=== PATIENT | male | born 1975 | race Caucasian/White ===

== ENCOUNTER 2017-09-08 10:02 | Inpatient (IN) | payer OTHER ==
[2017-09-08 10:20] VITALS: BMI 30.4
--- NOTE | 2017-09-08 10:53 | HP ---
CIWA Score - CIWA Score Nausea/Vomitin-Int. Nausea w/Dry Heave Muscle Tremors: 4-Moderate,w/Arms Extend Anxiety: 4-Mod. Anxious/Guarded Agitation: 1-Slight > Activity Paroxysmal Sweats: 1-Minimal Palms Moist Orientation: 1-Uncertain about Date Tacttile Disturbances: 1-Very Mild Itch/Numbness Auditory Disturbances: 2-Mild Harshness/Frighten Visual Disturbances: 2-Mild Sensitivity Headache: 2-Mild CIWA-Ar Total Score: 22 [facility] - HPI Chief Complaint: I've started to shake too bad in the morning to shave - I've vomited in the morning - I know I need help - I can't stop drinking Allergies/Adverse Reactions: Allergies Allergy/AdvReac Type Severity Reaction Status Date / Time No Known Allergies Allergy Verified 09/08/17 10:45 History of Present Illness: 41 yo gentleman here for detox from alcohol. First time in detox. No seizures , sometimes 'forgets' what happened but no actual 'black out'. States he has started in the last few weeks getting very shakey and nauseous in the mornings and needs to drink alcohol to quell those feelings and he knows he needs help and his family agrees. Exam Limitations: Clinical Condition - Ebola screening Have you traveled outside of the country in the last 21 days: No (N) Have you had contact with anyone from an Ebola affected area: No Have you been sick,other than usual withdrawal symptoms: No Do you have a fever: No - Review of Systems Constitutional: Loss of Appetite, Malaise, Night Sweats, Changes in sleep, Weakness EENT: reports: No Symptoms Reported Respiratory: reports: No Symptoms reported Cardiac: reports: No Symptoms Reported GI: reports: Nausea, Poor Appetite, Poor Fluid Intake, Indigestion : reports: Frequency Musculoskeletal: reports: No Symptoms Reported Integumentary: reports: Dryness Neuro: reports: Headache, Tremors, Weakness Endocrine: reports: No Symptoms Reported Hematology: reports: No Symptoms Reported Psychiatric: reports: Judgement Intact, Mood/Affect Appropiate, Anxious Other Systems: Reviewed and Negative Patient History - Patient Medical History Hx Anemia: No Hx Asthma: No Hx Chronic Obstructive Pulmonary Disease (COPD): No Hx Cancer: No Hx Cardiac Disorders: No Hx Congestive Heart Failure: No Hx Hypertension: Yes (on meds) Hx Hypercholesterolemia: Yes (not currently on meds) Hx Pacemaker: No HX Cerebrovascular Accident: No Hx Seizures: No Hx Diabetes: No Hx Gastrointestinal Disorders: No Hx Liver Disease: No Hx Genitourinary Disorders: No Hx Sexually Transmitted Disorders: No Hx Renal Disease (ESRD): No Hx Thyroid Disease: No Hx Human Immunodeficiency Virus (HIV): No Hx Hepatitis C: No Hx Depression: No Hx Suicide Attempt: No Hx Bipolar Disorder: No Hx Schizophrenia: No - Patient Surgical History Past Surgical History: No - PPD History Previous Implant?: No Implanted On Prior [facility] Admission?: No PPD to be Administered?: Yes - Reproductive History Patient is a Female of Child Bearing Age (11 -55 yrs old): No (male) - Smoking Cessation Smoking history: Former smoker Have you smoked in the past 12 months: No Initiated information on smoking cessation: No - Substance & Tx. History Hx Alcohol Use: Yes Hx Substance Use: No Substance Use Type: Alcohol Hx Substance Use Treatment: No - Substances Abused alcohol Route: Oral Frequency: Daily Amount used: 2 pints vodka Age of first use: 16 Date of Last Use: 09/08/17 Family Disease History - Family Disease History Family Disease History: Other: Father (living, healthy), Mother (living, healthy , ), Sister (one - healthy), Son (one - healthy), Daughter (two - healthy) Admission Physical Exam S - Vital Signs Vital Signs: Vital Signs - 24 hr 09/08/17 10:18 Temperature 97.9 F Pulse Rate 90 Respiratory 18 Rate Blood Pressure 161/89 - Physical General Appearance: Yes: Nourished, Appropriately Dressed, Moderate Distress, Anxious HEENTM: Yes: EOMI, Hearing grossly Normal, Normocephalic, Normal Voice, Pharynx Normal Respiratory: Yes: Normal Breath Sounds, No Respiratory Distress Neck: Yes: No masses,lesions,Nodules, Supple Breast: Yes: Breast Exam Deferred Cardiology: Yes: Regular Rhythm, Regular Rate Abdominal: Yes: Flat, Soft Genitourinary: Yes: Frequency Back: Yes: Normal Inspection Musculoskeletal: Yes: full range of Motion, Gait Steady Extremities: Yes: Normal Inspection, Normal Range of Motion, Non-Tender Neurological: Yes: Fully Oriented, Alert, Motor Strength 5/5, Normal Mood/Affect , Normal Response Integumentary: Yes: Normal Color, Dry, Warm Lymphatic: Yes: Within Normal Limits - Diagnostic (1) Alcohol dependence with uncomplicated withdrawal Current Visit: Yes Status: Chronic (2) HTN (hypertension) Current Visit: Yes Status: Chronic Qualifiers: Hypertension type: essential hypertension Qualified Code(s): I10 - Essential (primary) hypertension (3) Dehydration Current Visit: Yes Status: Chronic (4) Insomnia Current Visit: Yes Status: Acute Qualifiers: Insomnia type: alcohol-induced Qualified Code(s): F10.982 - Alcohol use, unspecified with alcohol-induced sleep disorder Cleared for Admission [facility] - Detox or Rehab [facility] Level of Care: Medically Managed Detox Regimen/Protocol: Librium [facility] Breath Alcohol Content Breath Alcohol Content: 0.264 Urine Drug Screen - Results Drug Screen Negative: Yes
[2017-09-08] MEDS ORDERED: IBUPROFEN 400 MG TABLET (FP) PO PRN (11:00)
[2017-09-08] MEDS ORDERED: P-EPHED 60MG/TRIPROLIDI 2.5MG TABLET PO PRN (11:00)
[2017-09-08] MEDS ORDERED: hydrOXYzine PAMOATE 50 MG CAPSULE (FP) PO PRN (11:00)
[2017-09-08] MEDS ORDERED: MENTHOL/PHENOL 1 EACH UD MM PRN (11:00)
[2017-09-08] MEDS ORDERED: MAGNESIUM CITRATE 300 ML BOTTLE PO PRN (11:00)
[2017-09-08] MEDS ORDERED: guaiFENesin/D-METHORPHAN HB 10 ML UNIT-DOSE CUPS PO PRN (11:00)
[2017-09-08] MEDS ORDERED: LOPERAMIDE HCL 2 MG CAPSULE PO PRN (11:00)
[2017-09-08] MEDS ORDERED: ACETAMINOPHEN 325 MG TABLET (FP) PO PRN (11:00)
[2017-09-08] MEDS ORDERED: MAGNESIUM HYDROX 2400MG/30ML ORAL SUSPENSION 30 ML CUP PO PRN (11:00)
[2017-09-08] MEDS ORDERED: chlordiazePOXIDE HCL 25 MG CAPSULE PO ONE (13:00)
[2017-09-08 17:54] LABS: URINE APPEARANCE CLEAR; URINE BILIRUBIN NEGATIVE (<2.0 mg/dL); URINE BLOOD 1+ (NEGATIVE); URINE COLOR LTYELLOW; URINE GLUCOSE (UA) NEGATIVE (NEGATIVE); URINE KETONE TRACE (NEGATIVE); URINE LEUK ESTERASE NEGATIVE (NEGATIVE); URINE NITRITE NEGATIVE (NEGATIVE); URINE UROBILINOGEN NEGATIVE mg/dL (0.2-1.0)
[2017-09-08 17:58] LABS: URINE PROTEIN 1+ (NEGATIVE)
[2017-09-08 17:59] LABS: URINE MUCUS RARE
[2017-09-08] MEDS: chlordiazePOXIDE HCL 25 MG CAPSULE PO SCH ×3 (18:20→22:12)
[2017-09-08] MEDS: THIAMINE HCL 100 MG TABLET (FP) PO SCH (22:12)
[2017-09-08] MEDS: MELATONIN 5 MG TABLETS PO PRN (22:12)
[2017-09-08] MEDS: chlordiazePOXIDE HCL 25 MG CAPSULE PO PRN (23:46)
[2017-09-09] MEDS: chlordiazePOXIDE HCL 25 MG CAPSULE PO PRN ×2 (03:57→12:33)
[2017-09-09] MEDS: chlordiazePOXIDE HCL 25 MG CAPSULE PO SCH ×4 (07:27→22:24)
--- NOTE | 2017-09-09 07:48 | CONSULT ---
[facility] Psychiatric Consult - Data Date of interview: 09/09/17 Admission source: [facility] Identifying data: Mr Whitley is a 41 years old male, father of 3 children, employed for a private [employer], domiciled living with and children seeking detox treatment for alcohol Substance Abuse History: Reports history of alcohol use. He started drinking alcohol at age 16, consumes 2 pints of vodka daily. Last drank on 09/08/17 Medical History: Significant for hypertension, dyslipidemia and GERD. Psychiatric History: Denies history of previous psychiatric treatment Physical/Sexual Abuse/Trauma History: Denies history of emotional, physical or seual abuse as well as DV relationship. No service Additional Comment: Denies criminal history Mental Status Exam - Mental Status Exam Alert and Oriented to: Time, Person Cognitive Function: Fair Patient Appearance: Well Groomed Mood: Anxious Affect: Appropriate Patient Behavior: Cooperative Speech Pattern: Clear Voice Loudness: Normal Thought Process: Intact, Goal Oriented Thought Disorder: Not Present Hallucinations: Denies Suicidal Ideation: Denies Homicidal Ideation: Denies Insight/Judgement: Poor Sleep: Poorly Appetite: Fair Muscle strength/Tone: Normal Gait/Station: Normal Psychiatric Findings - Problem List ([place] 1, 2,3) (1) Alcohol-induced anxiety disorder Current Visit: Yes Status: Acute (2) Alcohol-induced sleep disorder Current Visit: Yes Status: Acute (3) Alcohol dependence with uncomplicated withdrawal Current Visit: Yes Status: Acute (4) HTN (hypertension) Current Visit: Yes Status: Chronic Qualifiers: Hypertension type: essential hypertension Qualified Code(s): I10 - Essential (primary) hypertension (5) Hyperlipemia Current Visit: Yes Status: Chronic - Initial Treatment Plan Initial Treatment Plan: 1) Start Ambien 10 mg po HS prn for insomnia. 2) Continue inpatient detoxification
[2017-09-09] MEDS: LOSARTAN POTASSIUM 50 MG TABLET (FP) PO SCH (10:31)
[2017-09-09] MEDS: PRENATAL VITAMINS W/ FOLIC ACID TABLET (FP) PO SCH (10:31)
[2017-09-09] MEDS: HYDROCHLOROTHIAZIDE 25 MG TABLET (FP) PO SCH (10:31)
[2017-09-09 11:01] LABS: HEMATOCRIT 42.6 % (35.4-49); HEMOGLOBIN 14.7 GM/dL (11.7-16.9); MCH 30.6 pg (25.7-33.7); MCHC 34.6 g/dl (32.0-35.9); MEAN CELL VOLUME 88.5 fl (80-96); MEAN PLT VOLUME 6.8 fl (7.5-11.1); PLATELET COUNT 224 K/MM3 (134-434); RBC 4.82 M/mm3 (4.00-5.60); RDW 14.4 % (11.9-15.9); WHITE BLOOD COUNT 4.2 K/mm3 (4.0-10.0)
[2017-09-09 11:05] LABS: CHLORIDE 88 mmol/L (98-107); POTASSIUM 3.6 mmol/L (3.5-5.1); SODIUM 130 mmol/L (136-145)
--- NOTE | 2017-09-09 11:06 | PN ---
S CIWA - CIWA Score Nausea/Vomitin-Mild Nausea/No Vomiting (heart burn) Muscle Tremors: 4-Moderate,w/Arms Extend Anxiety: 4-Mod. Anxious/Guarded Agitation: 4-Moderately Restless Paroxysmal Sweats: 1-Minimal Palms Moist Orientation: 1-Uncertain about Date Tacttile Disturbances: 1-Very Mild Itch/Numbness Auditory Disturbances: 0-None Visual Disturbances: 0-None Headache: 1-Very Mild CIWA-Ar Total Score: 17 [facility] Progress Note (SOAP) Subjective: GI distress heart burn sweat tremor inaccurate date, anxiety irritable Objective: 09/09/17 11:05 Vital Signs Temperature 98.2 F 09/09/17 10:00 Pulse Rate 83 09/09/17 10:00 Respiratory Rate 20 09/09/17 10:00 Blood Pressure 149/93 09/09/17 10:00 O2 Sat by Pulse Oximetry (%) Laboratory Last Values Urine Color Ltyellow 09/08/17 Unknown Urine Appearance Clear 09/08/17 Unknown Urine pH 6.0 (5.0-8.0) 09/08/17 Unknown Ur Specific [place] 1.014 (1.001-1.035) 09/08/17 Unknown Urine Protein 1+ (NEGATIVE) H 09/08/17 Unknown Urine Glucose (UA) Negative (NEGATIVE) 09/08/17 Unknown Urine Ketones Trace (NEGATIVE) H 09/08/17 Unknown Urine Blood 1+ (NEGATIVE) H 09/08/17 Unknown Urine Nitrite Negative (NEGATIVE) 09/08/17 Unknown Urine Bilirubin Negative (<2.0 mg/dL) 09/08/17 Unknown Urine Urobilinogen Negative mg/dL (0.2-1.0) 09/08/17 Unknown Ur Leukocyte Esterase Negative (NEGATIVE) 09/08/17 Unknown Urine WBC (Auto) 1 /hpf (3-5) 09/08/17 Unknown Urine RBC (Auto) <1 /hpf (0-3) 09/08/17 Unknown Urine Mucus Rare 09/08/17 Unknown lab noted Assessment: 09/09/17 11:05 withdrawal sx 09/09/17 11:06 gerd Plan: continue detox zantac
[2017-09-09] MEDS: RANITIDINE HCL 150 MG TABLET (FP) PO SCH ×2 (12:15→22:24)
[2017-09-09 12:43] LABS: ALBUMIN 4.2 g/dl (3.4-5.0); ALK PHOS 123 U/L (45-117); ANION GAP 8 (8-16); BILIRUBIN,TOTAL 0.8 mg/dL (0.2-1.0); BLOOD UREA NITROGEN 11 mg/dL (7-18); CALCIUM 9.8 mg/dL (8.5-10.1); CO2 34 mmol/L (21-32); CREATININE 0.7 mg/dL (0.7-1.3); GLUCOSE,RANDOM 98 mg/dL (74-106); SGOT/AST 125 U/L (15-37); SGPT/ALT 171 U/L (12-78); TOT PROT 7.7 g/dl (6.4-8.2)
--- NOTE | 2017-09-09 16:23 | EKG ---
Test Reason : Blood Pressure : / mmHG Vent. Rate : 084 BPM Atrial Rate : 084 BPM P-R Int : 182 ms QRS Dur : 110 ms QT Int : 454 ms P-R-T Axes : 049 026 031 degrees QTc Int : 536 ms NORMAL SINUS RHYTHM LEFT ATRIAL ENLARGEMENT LEFT VENTRICULAR HYPERTROPHY ST ELEVATION, CONSIDER EARLY REPOLARIZATION, PERICARDITIS, OR INJURY PROLONGED QT ABNORMAL ECG NO PREVIOUS ECGS AVAILABLE Confirmed by MD LARA, RAMESH ([id number]) on 09/09/2017 4:23:39 PM Referred By: Confirmed By:RAMESH BERMUDEZ MD
[2017-09-09] MEDS: MELATONIN 5 MG TABLETS PO PRN (22:24)
[2017-09-09] MEDS: ZOLPIDEM TARTRATE 5 MG TABLET PO PRN (22:24)
[2017-09-09] MEDS: THIAMINE HCL 100 MG TABLET (FP) PO SCH (22:24)
[2017-09-10] MEDS: chlordiazePOXIDE HCL 25 MG CAPSULE PO SCH ×2 (05:16→10:33)
[2017-09-10] MEDS: PRENATAL VITAMINS W/ FOLIC ACID TABLET (FP) PO SCH (10:33)
[2017-09-10] MEDS: HYDROCHLOROTHIAZIDE 25 MG TABLET (FP) PO SCH (10:33)
[2017-09-10] MEDS: LOSARTAN POTASSIUM 50 MG TABLET (FP) PO SCH (10:33)
[2017-09-10] MEDS: RANITIDINE HCL 150 MG TABLET (FP) PO SCH ×2 (10:33→22:13)
--- NOTE | 2017-09-10 11:09 | PN ---
S CIWA - CIWA Score Nausea/Vomitin-No Nausea/No Vomiting Muscle Tremors: 4-Moderate,w/Arms Extend Anxiety: 4-Mod. Anxious/Guarded Agitation: 4-Moderately Restless Paroxysmal Sweats: 1-Minimal Palms Moist Orientation: 0-Oriented Tacttile Disturbances: 0-None Auditory Disturbances: 0-None Visual Disturbances: 0-None Headache: 0-None Present CIWA-Ar Total Score: 13 [facility] Progress Note (SOAP) Subjective: sweat tremor restlessness anxiety irritable Objective: 09/10/17 11:08 Vital Signs Temperature 98.2 F 09/10/17 09:09 Pulse Rate 95 H 09/10/17 09:09 Respiratory Rate 18 09/10/17 09:09 Blood Pressure 131/92 09/10/17 09:09 O2 Sat by Pulse Oximetry (%) Laboratory Last Values WBC 4.2 K/mm3 (4.0-10.0) 09/09/17 07:40 RBC 4.82 M/mm3 (4.00-5.60) 09/09/17 07:40 Hgb 14.7 GM/dL (11.7-16.9) 09/09/17 07:40 Hct 42.6 % (35.4-49) 09/09/17 07:40 MCV 88.5 fl (80-96) 09/09/17 07:40 MCH 30.6 pg (25.7-33.7) 09/09/17 07:40 MCHC 34.6 g/dl (32.0-35.9) 09/09/17 07:40 RDW 14.4 % (11.9-15.9) 09/09/17 07:40 Plt Count 224 K/MM3 (134-434) 09/09/17 07:40 MPV 6.8 fl (7.5-11.1) L 09/09/17 07:40 Sodium 130 mmol/L (136-145) L 09/09/17 07:40 Potassium 3.6 mmol/L (3.5-5.1) 09/09/17 07:40 Chloride 88 mmol/L (98-107) L 09/09/17 07:40 Carbon Dioxide 34 mmol/L (21-32) H 09/09/17 07:40 Anion Gap 8 (8-16) 09/09/17 07:40 BUN 11 mg/dL (7-18) 09/09/17 07:40 Creatinine 0.7 mg/dL (0.7-1.3) 09/09/17 07:40 Creat Clearance w eGFR > 60 (>60) 09/09/17 07:40 Random Glucose 98 mg/dL (74-106) 09/09/17 07:40 Calcium 9.8 mg/dL (8.5-10.1) 09/09/17 07:40 Total Bilirubin 0.8 mg/dL (0.2-1.0) 09/09/17 07:40 AST 125 U/L (15-37) H 09/09/17 07:40 ALT 171 U/L (12-78) H 09/09/17 07:40 Alkaline Phosphatase 123 U/L (45-117) H 09/09/17 07:40 Total Protein 7.7 g/dl (6.4-8.2) 09/09/17 07:40 Albumin 4.2 g/dl (3.4-5.0) 09/09/17 07:40 Urine Color Ltyellow 09/08/17 Unknown Urine Appearance Clear 09/08/17 Unknown Urine pH 6.0 (5.0-8.0) 09/08/17 Unknown Ur Specific [place] 1.014 (1.001-1.035) 09/08/17 Unknown Urine Protein 1+ (NEGATIVE) H 09/08/17 Unknown Urine Glucose (UA) Negative (NEGATIVE) 09/08/17 Unknown Urine Ketones Trace (NEGATIVE) H 09/08/17 Unknown Urine Blood 1+ (NEGATIVE) H 09/08/17 Unknown Urine Nitrite Negative (NEGATIVE) 09/08/17 Unknown Urine Bilirubin Negative (<2.0 mg/dL) 09/08/17 Unknown Urine Urobilinogen Negative mg/dL (0.2-1.0) 09/08/17 Unknown Ur Leukocyte Esterase Negative (NEGATIVE) 09/08/17 Unknown Urine WBC (Auto) 1 /hpf (3-5) 09/08/17 Unknown Urine RBC (Auto) <1 /hpf (0-3) 09/08/17 Unknown Urine Mucus Rare 09/08/17 Unknown RPR Titer Nonreactive (NONREACTIVE) 09/09/17 07:40 lab noted Assessment: 09/10/17 11:09 withdrawal sx Plan: continue detox
[2017-09-10] MEDS: chlordiazePOXIDE 5 MG CAPSULE PO SCH ×2 (17:19→22:13)
[2017-09-10] MEDS: THIAMINE HCL 100 MG TABLET (FP) PO SCH (22:13)
[2017-09-10] MEDS: ZOLPIDEM TARTRATE 5 MG TABLET PO PRN (22:13)
[2017-09-11] MEDS: chlordiazePOXIDE 5 MG CAPSULE PO SCH ×2 (05:54→10:20)
[2017-09-11] MEDS: LOSARTAN POTASSIUM 50 MG TABLET (FP) PO SCH (10:20)
[2017-09-11] MEDS: RANITIDINE HCL 150 MG TABLET (FP) PO SCH ×2 (10:20→22:17)
[2017-09-11] MEDS: PRENATAL VITAMINS W/ FOLIC ACID TABLET (FP) PO SCH (10:20)
[2017-09-11] MEDS: HYDROCHLOROTHIAZIDE 25 MG TABLET (FP) PO SCH (10:20)
--- NOTE | 2017-09-11 13:31 | PN ---
S Progress Note (SOAP) Subjective: ALERT,IRRITABLE,ANXIOUS,TREMOR,INTERRUPTED SLEEP Objective: 09/11/17 13:30 Vital Signs Temperature 97.9 F 09/11/17 10:00 Pulse Rate 84 09/11/17 10:00 Respiratory Rate 18 09/11/17 10:00 Blood Pressure 126/81 09/11/17 10:00 O2 Sat by Pulse Oximetry (%) Assessment: 09/11/17 13:31 WITHDRAWAL SYMPTOM Plan: CONTINUE DETOX,DISCHARGE IN AM
[2017-09-11] MEDS: chlordiazePOXIDE HCL 10 MG CAPSULE PO SCH ×2 (18:07→22:17)
[2017-09-11] MEDS: MAG HYDROX/AL HYDROX/SIMETH 30 ML UNIT-DOSE CUP PO PRN (20:01)
[2017-09-11] MEDS: THIAMINE HCL 100 MG TABLET (FP) PO SCH (22:17)
[2017-09-11] MEDS: MELATONIN 5 MG TABLETS PO PRN (22:18)
[2017-09-12] MEDS: chlordiazePOXIDE HCL 10 MG CAPSULE PO SCH ×2 (05:25→10:09)
--- NOTE | 2017-09-12 08:44 | PN ---
Psychiatric Progress Note Vital Signs: Vital Signs Period Temp Pulse Resp BP Sys/Longo Pulse Ox Last 24 Hr 97.9 F-99.0 F 71-94 17-20 101-129/58-81 Date of Session: 09/12/17 Chief Complaint:: Anxiety HPI: Patient asking to jose his Vistaril 50 mg q4 order to aftercare for anxiety Current Medications: Active Medications Generic Name Dose Route Start Last Admin Trade Name Freq PRN Reason Stop Dose Admin Acetaminophen 650 mg 09/08/17 11:00 Tylenol - PO Q4H PRN FEVER Al Hydroxide/Mg Hydroxide 30 ml 09/08/17 11:00 09/11/17 20:01 Mylanta Oral Suspension - PO 30 ml Q6H PRN Administration DYSPEPSIA Chlordiazepoxide HCl 10 mg 09/11/17 17:00 09/12/17 05:25 Librium - PO 09/12/17 11:01 10 mg [id number] APOORVA Administration Eucalyptus/Menthol/Phenol/Sorbitol 1 each 09/08/17 11:00 09/09/17 17:08 Cepastat Lozenge - MM 1 each Q4H PRN Administration SORE THROAT Guaifenesin 10 ml 09/08/17 11:00 Robitussin Dm - PO Q6H PRN COUGH Hydrochlorothiazide 25 mg 09/09/17 10:00 09/11/17 10:20 Hctz - PO 25 mg DAILY APOORVA Administration Hydroxyzine Pamoate 50 mg 09/08/17 11:00 Vistaril - PO Q4H PRN AGITATION Loperamide HCl 4 mg 09/08/17 11:00 Imodium - PO Q6H PRN DIARRHEA Losartan Potassium 50 mg 09/09/17 10:00 09/11/17 10:20 Cozaar - PO 50 mg DAILY APOORVA Administration Magnesium Citrate 300 ml 09/08/17 11:00 Citroma - PO Q48H PRN CONSTIPATION Magnesium Hydroxide 30 ml 09/08/17 11:00 Milk Of Magnesia - PO DAILY PRN CONSTIPATION Melatonin 5 mg 09/08/17 22:00 09/11/17 22:18 Melatonin PO 5 mg HS PRN Administration INSOMNIA Multivit/Folic Acid/Iron 1 tab 09/09/17 10:00 09/11/17 10:20 Vitamins ([facility]) - PO 1 tab DAILY APOORVA Administration Pseudoephedrine/Triprolidine 1 combo 09/08/17 11:00 Actifed - PO TID PRN NASAL CONGESTION Ranitidine HCl 150 mg 09/09/17 11:15 09/11/17 22:17 Zantac - PO 150 mg BID APOORVA Administration Thiamine HCl 100 mg 09/08/17 22:00 09/11/17 22:17 Vitamin B1 - PO 100 mg HS APOORVA Administration Zolpidem Tartrate 10 mg 09/09/17 10:56 09/10/17 22:13 Ambien - PO 10 mg HS PRN Administration INSOMNIA Medication(s) Change(s): same Provider note:: Vistaril, 5mg pom prn q4 for anxiety #90 sent to patient's pharmacy, as per his request Mental Status Exam - Mental Status Exam Alert and Oriented to: Time Cognitive Function: Fair Patient Appearance: Well Groomed Mood: Apprehensive Affect: Mood Congruent Patient Behavior: Cooperative Speech Pattern: Appropriate Voice Loudness: Normal Thought Process: Goal Oriented Thought Disorder: Being Controlled Hallucinations: Denies Suicidal Ideation: Denies Homicidal Ideation: Denies Insight/Judgement: Fair Sleep: Difficulty falling asleep Appetite: Fair Muscle strength/Tone: Normal Gait/Station: Normal Additional Comments: Continue treatment plan Psychiatric Treatment Plan - Problem List (1) Alcohol dependence with uncomplicated withdrawal Current Visit: Yes (2) Alcohol-induced anxiety disorder Current Visit: Yes (3) Alcohol-induced sleep disorder Current Visit: Yes Initial treatment plan: Vistaril, 5mg pom prn q4 for anxiety #90 sent to patient 's pharmacy, as per his request
--- NOTE | 2017-09-12 08:45 | DS ---
[facility] Detox Discharge Summary Admission Date: 09/08/17 Discharge Date: 09/12/17 - History Present History: Alcohol Dependence Additional Comments: 41 years old male admitted for alcohol detox completed detox regimen tolerated well patient wants to go to [facility] for rehab patient is alert oriented x 3 no acute distress - Physical Exam Results Vital Signs: Vital Signs Temperature 98.1 F 09/12/17 06:33 Pulse Rate 77 09/12/17 06:33 Respiratory Rate 18 09/12/17 06:33 Blood Pressure 101/58 09/12/17 06:33 O2 Sat by Pulse Oximetry (%) Pertinent Admission Physical Exam Findings: [facility] Course: Detox Protocol Followed, Detoxed Safely, Responded well, Discharged Condition Good, Rehab Referral Accepted - Medication Discharge Medications: Ambulatory Orders Omeprazole/Sodium Bicarbonate [Zegerid 20mg (RX)] 1 each PO DAILY PRN 09/08/17 Hydrochlorothiazide [Hctz -] 25 mg PO DAILY #30 tablet 09/12/17 Losartan Potassium [Cozaar -] 50 mg PO DAILY #30 tablet 09/12/17 hydrOXYzine PAMOATE [Vistaril -] 50 mg PO Q4H PRN #90 capsule 09/12/17 - Diagnosis (1) Alcohol dependence with uncomplicated withdrawal Status: Acute (2) HTN (hypertension) Status: Chronic Qualifiers: Hypertension type: essential hypertension Qualified Code(s): I10 - Essential (primary) hypertension (3) Hyperlipemia Status: Chronic Qualifiers: Hyperlipidemia type: pure hypercholesterolemia Qualified Code(s): E78.00 - Pure hypercholesterolemia, unspecified; E78.0 - Pure hypercholesterolemia - AMA Did Patient Leave Against Medical Advice: No
[2017-09-12 09:37] VITALS: BP 125/72; PULSE 89; TEMP 98.2
[2017-09-12] MEDS: PRENATAL VITAMINS W/ FOLIC ACID TABLET (FP) PO SCH (09:55)
[2017-09-12] MEDS: RANITIDINE HCL 150 MG TABLET (FP) PO SCH (09:56)
[2017-09-12] MEDS: HYDROCHLOROTHIAZIDE 25 MG TABLET (FP) PO SCH (09:56)
[2017-09-12] MEDS: MAG HYDROX/AL HYDROX/SIMETH 30 ML UNIT-DOSE CUP PO PRN (09:58)
[2017-09-12] MEDS: LOSARTAN POTASSIUM 50 MG TABLET (FP) PO SCH (09:58)
[2017-09-12] MEDS ORDERED: hydrOXYzine PAMOATE 50 MG CAPSULE (FP) PO SCH (10:00)
== END 2017-09-12 10:14 | disposition home or self-care (01) | DRG 897 ==
LOC: YASAS 10:02 → Y6N 12:49
PROVIDERS: ADMIT Internal Medicine; ATTEND Internal Medicine
PROC: HZ2ZZZZ Detoxification Services for Substance Abuse Treatment (ICD-10-PCS; principal; 2017-09-08)
DX: F10.230 Alcohol dependence with withdrawal, uncomplicated (principal); F10.282 Alcohol dependence with alcohol-induced sleep disorder; F10.24 Alcohol dependence with alcohol-induced mood disorder; F10.280 Alcohol dependence with alcohol-induced anxiety disorder; G47.00 Insomnia, unspecified; I10 Essential (primary) hypertension; E78.00 Pure hypercholesterolemia, unspecified; E86.0 Dehydration
CPT/HCPCS: 36415; 80053; 81003; 81015; 85027; 86593; 93005; 93010